=== PATIENT | female | born 1955 | race Caucasian/White ===

== ENCOUNTER 2023-07-26 11:55 | Outpatient (OUT) | payer MEDICARE, SELFPAY ==
--- NOTE | 2023-07-26 | XR_ITS ---
The [address] [address] Patient Name: LOU BENZ MRN: [id number] date: 1955 Sex: F Assigned Patient Location: [facility] Current Patient Location: Accession/Order Number: [id number] Exam Date: 07/26/2023 12:34 Report Date: 07/27/2023 00:54 At the request of: ASIA HOLLOWAY Procedure: XR hip RT 2V w/ pelvis PROCEDURE: XR hip RT 2V w/ pelvis HISTORY: RT Hip Pain , chronic COMPARISON: None. FINDINGS: BONES:Moderate narrowing of the hip joint spaces bilaterally with small periarticular degenerative osteophytes. No fracture, dislocation, or bone lesion. SOFT TISSUES:No visible soft tissue swelling. EFFUSION:None visible. OTHER: Negative. XR/XR hip RT 2V w/ pelvis IMPRESSION: 1. No acute bone abnormality. 2. Moderate degenerative joint disease bilaterally. Electronically authenticated by: EDUIN RIZVI Date: 07/27/2023 00:54
--- NOTE | 2023-07-26 | XR_ITS ---
The [address] [address] Patient Name: LOU BENZ MRN: [id number] date: 1955 Sex: F Assigned Patient Location: [facility] Current Patient Location: [facility] Accession/Order Number: [id number] Exam Date: 07/26/2023 12:34 Report Date: 07/27/2023 00:59 At the request of: ASIA HOLLOWAY Procedure: XR shoulder RT min 2V PROCEDURE: XR shoulder RT min 2V HISTORY: Rt Shoulder Pain secondary to falling COMPARISON: None. FINDINGS: BONES:No fracture, acute abnormality, or significant arthropathy. SOFT TISSUES:No visible soft tissue swelling. EFFUSION:None visible. OTHER: Negative. XR/XR shoulder RT min 2V IMPRESSION: 1. No acute bone abnormality. 2. Mild degenerative changes of the acromioclavicular joint. Electronically authenticated by: EDUIN RIZVI Date: 07/27/2023 00:59
== END 2023-07-26 11:56 | disposition home or self-care (01) ==
LOC: RAD 11:58
PROVIDERS: PCP Family Medicine; Visit Provider Family Medicine
DX: M25.511 Pain in right shoulder (principal); M16.0 Bilateral primary osteoarthritis of hip
CPT/HCPCS: 73030; 73502

== ENCOUNTER 2024-12-06 09:40 | Outpatient (OUT) | payer MEDICARE, SELFPAY ==
[2024-12-06 10:04] LABS: Basophils Percent Auto 0.5 % (0.2-2.0); Eosinophils Absolute Auto 0.4 10^3/uL (0.0-0.7); Eosinophils Percent Auto 4.6 % (0.9-7.0); Hematocrit 45.2 % (36.0-48.0); Hemoglobin 15.5 g/dL (12.0-16.0); Immature Granulocytes Abs Auto 0.01 10^3/uL (0.00-0.03); Immature Granulocytes Pct Auto 0.1 % (0.0-0.5); Lymphocytes Absolute Auto 3.2 10^3/uL (1.2-3.8); Lymphocytes Percent Auto 38.9 % (20.5-60.0); Mean Corpuscular HGB Conc 34.3 g/dL (29.9-35.2); Mean Corpuscular Volume 84.5 fL (81.0-99.0); Mean Platelet Volume 9.5 fL (9.5-13.5); Monocytes Absolute Auto 0.5 10^3/uL (0.3-0.8); Neutrophils Absolute Auto 4.1 10^3/uL (1.4-6.5); Neutrophils Percent Auto 49.9 % (43.0-75.0); Platelet Count 326 10^3/uL (150-450); Red Blood Count 5.35 10^6/uL (4.20-5.40); Red Cell Distribution Width 13.7 % (11.0-15.0); White Blood Count 8.2 10^3/uL (4.0-11.0)
[2024-12-06 10:26] LABS: Estimated Average Glucose 120 mg/dL; Glycohemoglobin A1C 5.8 % (4.5-6.2)
[2024-12-06 10:49] LABS: Alanine Aminotransferase 22 U/L (14-59); Albumin Globulin Ratio 1.1; Albumin Level 3.8 g/dL (3.4-5.0); Alkaline Phosphatase 106 U/L (46-116); Anion Gap 12.9; Aspartate Amino Transferase 16 U/L (15-37); BUN Creatinine Ratio 13.3; Bilirubin Total 0.7 mg/dL (0.2-1.0); Calcium 9.6 mg/dL (8.5-10.1); Carbon Dioxide 30.2 mmol/L (21.0-32.0); Chloride 104 mmol/L (98-107); Chol HDL Ratio 4.8; Cholesterol 233 mg/dL (<=200); Estimated GFR (African America >60 (>=60 mL/min/1.73m^2); Estimated GFR (Non-African Ame >60 (>=60 mL/min/1.73m^2); Free T3 2.49 pg/mL (2.18-3.98); Globulin 3.6 g/dL; Glucose 108 mg/dL (74-106); HDL Cholesterol 49 mg/dL (40-60); Potassium 4.1 mmol/L (3.5-5.1); Sodium 143 mmol/L (136-145); Total Protein 7.4 g/dL (6.4-8.2); Triglycerides 132 mg/dL (<=150); VLDL CHOLESTEROL 26.4 mg/dL
[2024-12-07 03:07] LABS: Insulin 23.6 uIU/mL (2.6-24.9)
== END 2024-12-06 09:41 | disposition home or self-care (01) ==
LOC: LAB 09:45
PROVIDERS: PCP Family Medicine; Visit Provider Family Medicine
DX: M16.11 Unilateral primary osteoarthritis, right hip (principal); K21.9 Gastro-esophageal reflux disease without esophagitis; E78.5 Hyperlipidemia, unspecified; R73.09 Other abnormal glucose; Z12.12 Encounter for screening for malignant neoplasm of rectum; D64.9 Anemia, unspecified
CPT/HCPCS: 36415; 80053; 80061; 83036; 83525; 83540; 84436; 84443; 84481; 85025